=== PATIENT | male | born 1975 | race Caucasian/White ===

== ENCOUNTER 2018-03-13 21:47 | Emergency (ER) | payer OTHER ==
[~2018-03-13] VITALS: Ht 185.4 cm; Wt 113.4 kg
[2018-03-13 22:00] VITALS: Ht 185.4 cm; Wt 113.4 kg
[2018-03-13 23:39] VITALS: BP 116/77
== END 2018-03-13 23:39 | disposition home or self-care (01) ==
LOC: ED 21:47
DX: N39.0 Urinary tract infection, site not specified (principal); E11.9 Type 2 diabetes mellitus without complications